=== PATIENT | male | born 1955 | race Caucasian/White ===

== ENCOUNTER 2018-12-29 12:40 | Emergency (ER) | payer MEDICARE ==
[~2018-12-29] VITALS: Ht 170.2 cm; Wt 88.5 kg
[~2018-12-29 12:40] MED LIST: ALUMAG30SU PO; ATOR10 PO; Aspirin EC81 MG PO; BUPR100ER PO; Bactrim Ds Tab1 EACH PO; CEPH500 PO; CLOP75 PO; GABA300 PO; Glipizide-Metf1 EAC2 PO; IBUP800 PO; LISI5 PO; Omeprazole20 M1 PO; PIOG15 PO; Pepcid20 MG PO; Percocet 7.5-31 EACH PO; Ultram50 MG PO
[2018-12-29] MEDS ORDERED: Robaxin500 MG PO (15:15)
== END 2018-12-29 15:23 | disposition home or self-care (01) ==
LOC: ER 12:40
DX: M54.5 Low back pain (principal); E78.5 Hyperlipidemia, unspecified; E11.9 Type 2 diabetes mellitus without complications; F17.210 Nicotine dependence, cigarettes, uncomplicated; Z88.8 Allergy status to other drugs, medicaments and biological substances; Z79.899 Other long term (current) drug therapy
CPT/HCPCS: 96372; 99283-25; J1885

== ENCOUNTER 2019-04-23 18:34 | Inpatient (IN) | payer MEDICARE ==
[~2019-04-23] VITALS: Ht 170.2 cm; Wt 85.3 kg
[~2019-04-23 18:34] MED LIST changes: +Robaxin500 MG PO
[2019-04-23 19:00] LABS: BASOPHILS ABSOLUTE AUTO 0.08 K/mm3 (0.00-0.23); BASOPHILS PERCENT AUTO 1 % (0-2); EOSINOPHILS PERCENT AUTO 2 % (0-6); Hematocrit 49.5 % (37.0-53.0); Hemoglobin 16.4 g/dL (13.5-17.5); IMMATURE GRAN ABSOLUTE AUTO 0.03 K/mm3 (0.00-0.10); IMMATURE GRAN PERCENT AUTO 0 % (0-1); LYMPHOCYTES ABSOLUTE AUTO 1.75 K/mm3 (0.84-5.20); LYMPHOCYTES PERCENT AUTO 20 % (21-46); MONOCYTES ABSOLUTE AUTO 0.67 K/mm3 (0.16-1.47); MONOCYTES PERCENT AUTO 8 % (4-13); Mean Corpuscular HGB 28.3 pg (26.0-34.0); Mean Corpuscular HGB Conc 33.1 g/dL (31.5-36.5); Mean Corpuscular Volume 85 fL (80-100); Mean Platelet Volume 9.9 fL (9.1-12.4); NEUTROPHILS ABSOLUTE AUTO 5.94 K/mm3 (1.96-9.15); NEUTROPHILS PERCENT AUTO 69 % (41-73); Platelet Count 249 K/mm3 (150-400); RDW Standard Deviation 43.3 fL (35.1-46.3); White Blood Cell Count 8.67 K/mm3 (4.00-11.30)
[2019-04-23 19:23] LABS: Alanine Aminotransfer (ALT/SGP 23 U/L (12-78); Albumin, Blood 3.6 g/dL (3.4-5.0); Albumin/Globulin Ratio 0.9 (0.8-1.8); Alk Phos 132 U/L (50-136); Anion Gap 7 mmol/L (6-16); Aspartate Aminotrans (AST/SGOT 19 U/L (12-37); Bilirubin, Total 0.7 mg/dL (0.1-1.0); Blood Urea Nitrogen 16 mg/dL (8-24); Bun/Creatinine Ratio 16.4 (12.0-20.0); CO2, Blood 23 mmol/L (21-32); Calcium, Blood 9.1 mg/dL (8.5-10.1); Chloride, Blood 101 mmol/L (98-108); Creatinine, Blood 0.97 mg/dL (0.60-1.20); Glomerular Filtration Rate >60 (60-); Glucose, Blood 504 mg/dL (70-99); Potassium, Blood 4.1 mmol/L (3.5-5.5); Sodium, Blood 131 mmol/L (136-145); Total Protein, Blood 7.6 g/dL (6.4-8.2)
[2019-04-23] MEDS ORDERED: Aspir 8181 MG PO (19:38)
[2019-04-23] MEDS ORDERED: Glipizide-Metf1 EAC2 PO (19:39)
[2019-04-23] MEDS ORDERED: NEURONTIN600 MG PO (19:39)
[2019-04-23] MEDS ORDERED: ATOR10 PO (19:40)
[2019-04-23] MEDS ORDERED: Prinivil10 MG PO (19:40)
--- NOTE | 2019-04-23 21:52 | NUR ---
ADMIT NOTE; ADMIT 64 YEAR OLD MALE TO ICU [address] GOMEZ SERVICE PER [facility] VIA ER. TRANSFER TO BED MONITOR PLACED SHOWING SINUS RHYTHM . HEART RATE 60'S DENIES CHEST PAIN/DISCOMFORT. LUNG SOUNDS CLEAR SLIGHTLY DECREASED R BASE. RESPIRATIONS REGULAR AND EASY ON ROOM AIR SPO2 96% ABDOMEN SOFT WITH BOWEL SOUNDS FOUR QUADS PEDAL PULSES PRESENT NO EDEMA NOTED. BLOOD CONSENT AND RELEASE OF MEDICAL INFROMATION COMPLETED. KNIGHT WELL IN BED. CONTINUE TO MONITOR AND REPORT CHANGE IN PATIENT CONDTION.
--- NOTE | 2019-04-23 23:00 | NUR ---
DR GOMEZ NOTIFIED OF PATIENT CO OF CHEST PAIN RADIATING TO SHOULDERS ORDERS NOTED. MEDICATED WITH 25MCGS OF FENTANYL
[2019-04-24 02:16] LABS: BASOPHILS ABSOLUTE AUTO 0.07 K/mm3 (0.00-0.23); BASOPHILS PERCENT AUTO 1 % (0-2); EOSINOPHILS ABSOLUTE AUTO 0.25 K/mm3 (0.00-0.68); EOSINOPHILS PERCENT AUTO 3 % (0-6); Hematocrit 47.9 % (37.0-53.0); Hemoglobin 15.6 g/dL (13.5-17.5); IMMATURE GRAN ABSOLUTE AUTO 0.04 K/mm3 (0.00-0.10); IMMATURE GRAN PERCENT AUTO 0 % (0-1); LYMPHOCYTES PERCENT AUTO 31 % (21-46); MONOCYTES ABSOLUTE AUTO 0.77 K/mm3 (0.16-1.47); MONOCYTES PERCENT AUTO 8 % (4-13); Mean Corpuscular HGB Conc 32.6 g/dL (31.5-36.5); Mean Corpuscular Volume 86 fL (80-100); Mean Platelet Volume 9.8 fL (9.1-12.4); NEUTROPHILS ABSOLUTE AUTO 5.21 K/mm3 (1.96-9.15); NEUTROPHILS PERCENT AUTO 56 % (41-73); Platelet Count 237 K/mm3 (150-400); RDW Coefficient Variation 13.9 % (11.7-14.2); RDW Standard Deviation 43.3 fL (35.1-46.3); Red Blood Cell Count 5.57 M/mm3 (4.30-5.90); White Blood Cell Count 9.24 K/mm3 (4.00-11.30)
[2019-04-24 02:38] LABS: Alanine Aminotransfer (ALT/SGP 21 U/L (12-78); Albumin, Blood 3.2 g/dL (3.4-5.0); Albumin/Globulin Ratio 0.9 (0.8-1.8); Alk Phos 103 U/L (50-136); Anion Gap 6 mmol/L (6-16); Aspartate Aminotrans (AST/SGOT 31 U/L (12-37); Bilirubin, Total 0.5 mg/dL (0.1-1.0); Blood Urea Nitrogen 14 mg/dL (8-24); Bun/Creatinine Ratio 16.3 (12.0-20.0); CO2, Blood 26 mmol/L (21-32); CPK Creatine Kinase 166 U/L (39-308); Calcium, Blood 8.6 mg/dL (8.5-10.1); Chloride, Blood 106 mmol/L (98-108); Creatine Kinase MB 8.5 ng/mL (0.0-3.6); Creatine Kinase MB Index 5.1 (0.0-4.0); Creatinine, Blood 0.86 mg/dL (0.60-1.20); Globulin, Blood 3.5 g/dL (2.2-4.0); Glomerular Filtration Rate >60 (60-); Glucose, Blood 291 mg/dL (70-99); Potassium, Blood 4.1 mmol/L (3.5-5.5); Sodium, Blood 138 mmol/L (136-145); Total Protein, Blood 6.7 g/dL (6.4-8.2)
--- NOTE | 2019-04-24 02:57 | NUR ---
DR HOLLOWAY NOTIFIED OF LAB RESULTS TROPONIN OF 5.28 ORDERS NOTED
--- NOTE | 2019-04-24 05:30 | NUR ---
SHFIT SUMMARY: RESTS QUIETLY WHEN UNDISTURBED. MONITOR INTACT SHOWING SINUS RHYTHM. HEART RATE 70'S-80'S. DENIES CHEST PAIN OR OTHER DISCOMFORT. LUNG SOUNDS CLEAR . RESPIRATIONS REGULAR AND EASY ON ROOM AIR SPOT CHECK SPO2 GREATER THAN 93% ABDOMEN SOFT WITH BOWEL SOUNDS FOUR QUADS. VOIDS LJ URINE. REPOSITIONS SELF IN BED PEDAL PULSES PRESENT NO EDEMA NOTED. SPENDING NOC AT BEDSIDE ATTENTIVE TO NEEDS AND CARES. CONTINUE TO MOONITOR AND REPORT CHANGE IN PATINET CONDITION. NPO SINCE MIDNOC
--- NOTE | 2019-04-24 07:29 | NUR ---
START OF SHIFT NOTE: RECEIVED REPORT FROM BRYAN ARAUJO RN, ASSUMED CARE, PATIENT IS AWAKE, ALERT AND ORIENTED, LUNG SOUNDS DIMINISHED AND EXPIRATORY WHEEZES NOTED IN LOWER LOBES, SR, PATIENT USES URINAL TO VOID, NO BM SINCE ARRIVAL, PATIENT DENIES PAIN OR SOB, REPORTES NO N/V, HEPARIN DRIP INFUSING AT 13 UNITS, NEXT PTT AT 0900, PATIENT IS NPO AT THIS TIME FOR POSSIBLE PROCEDURE, DR. EUGENE IN TO SEE PATIENT, AFEBRILE AT THIS TIME, AT BEDSIDE, CALL LIGHT IN REACH, WILL CONTINUE TO MONITOR.
--- NOTE | 2019-04-24 08:18 | NUR ---
STATE TESTED NURSING ASSISTANT IN TO DO ORDERED ECHO.
--- NOTE | 2019-04-24 08:18 | NUR ---
DR. LEE IN TO SEE PATIENT, NO NEW ORDERS RECEIVED.
[2019-04-24 09:53] LABS: CHOL/HDL RATIO 5.7; Cholesterol 217 mg/dL (50-200); HDL Cholesterol 38 mg/dL (>39); LDL/HDL RATIO 4.1; Low Density Lipoprotein Chol 154 mg/dL (0-110); Triglycerides 124 mg/dL (30-160); Very Low Density Lipoprot Chol 24 mg/dL (6-32)
[2019-04-24 09:57] LABS: Creatine Kinase MB Index 4.9 (0.0-4.0)
[2019-04-24 10:16] LABS: Troponin I 5.77 ng/mL (0.000-0.040)
--- NOTE | 2019-04-24 10:21 | NUR ---
PER PHARMACY HEPARIN DRIPP WAS INCREASED TO 15 UNITS AFTER PATIENT RECEIVED A BOLUS OF 4,250 UNITS OF HEPARIN, aPTT WAS 42.7, ALSO TROPONIN RESULTED IN 5.77 THAT WAS UP FROM 5.28 EARLIER, DR. EUGENE NOTIFIED, NEW ORDER RECEIVED.
--- NOTE | 2019-04-24 10:40 | NUR ---
PATIENT RESTING COMFORTABLY AT THIS TIME, DENIES PAIN, REPORTS NO SOB, COOPERATIVE AND PLEASANT, STANDS TO URINATE, CALL LIGHT IN REACH, WILL CONTINUE TO MONITOR.
--- NOTE | 2019-04-24 12:05 | NUR ---
Echocardiogram completed.
--- NOTE | 2019-04-24 13:35 | NUR ---
PATIENT TAKEN TO PEDIATRIC NEPHROLOGIST VIA HOSPITAL BED AND ON MONITOR.
[2019-04-24 13:46] LABS: Creatine Kinase MB Index 4.7 (0.0-4.0)
[2019-04-24 14:02] LABS: Troponin I 5.49 ng/mL (0.000-0.040)
--- NOTE | 2019-04-24 15:00 | NUR ---
PATIENT RETURNED FROM [employer], RIGHT RADIAL ACCESS SITE, TR BAND IN PLACE WITH 12 CC OF AIR, NO BLEEDING, NONTENDER, NO HEMATOMA NOTED, SOFT ON PALPATION, PATIENT HAS LOW SBP, IV BOLUS ORDERED, PATIENT IS AWAKE, ALERT AND ORIENTED, WILL BE TRANSFERRED TO [facility] FOR POSSIBLE CABG, AWAITING NOTIFICATION OF ACCEPTING PHYSICIAN, AT BEDSIDE, CALL LIGHT IN REACH, WILL CONTINUE TO MONITOR.
--- NOTE | 2019-04-24 16:36 | NUR ---
TRANSFER COORIDNATOR FROM [facility] CALLED AND NOTIFIED THIS RN THAT PATIENT HAS BEEN ACCEPTED, FACE SHEET WAS FAXED, DR. ZIEGLER IN TO NOTIFIY THIS RN WELL, WILL AWAIT CALL FOR ROOM NUMBER.
--- NOTE | 2019-04-24 17:21 | NUR ---
[facility] CALL AND RELAYED ROOM NUMBER, PATIENT IS GOING TO ROOM 4403, REPORT WILL BE CALLED TO FAISAL SWAIN, PATIENT EATING DINNER AT THIS TIME, JHONNY REYES, EXCEL EXPERT, WILL CALL [facility] TO INITIATE TRANSFER OF PATIENT.
--- NOTE | 2019-04-24 17:42 | NUR ---
SHIFT SUMMARY NOTE: NO ACUTE EVENTS, PATIENT IS EATING DINNER AND AWAITING TRANSFER TO [facility] IN [place], ALERT AND ORIENTED, RA, LUNG SOUNDS DIMINISHED BUT CLEAR, BOWEL TONES HYPOACTIVE, PATIENT USES URINAL TO VOID, HAS TR BAND ON RIGHT RADIAL ACCESS SITE FROM HEART CATHETERIZATION, 8 CC'S OF AIR REMAINING AT THIS TIME, PATIENT HAS ARMBOARD IN PLACE AND WAS INSTRUCTED TO NOT USE WRIST AND TREAT IT BROKEN, NO PUSHING, PULLING, FLEXINGIN EITHER DIRECTION, TRANSER PACKET READY, AWAITING [facility] TO ARRIVE FOR TRANSFER OF PATIENT, CALL LIGHT IN REACH, WILL CONTINUE TO MONITOR AND CALL REPORT TO FAISAL SWAIN, AT [facility].
--- NOTE | 2019-04-24 17:53 | NUR ---
REPORT CALLED TO FAISAL SWAIN, AT [facility] IN [place].
--- NOTE | 2019-04-24 18:00 | NUR ---
FAISAL SWAIN, AT [facility] REPORTED THAT DR. MARTÍNEZ APPRECIATES IF TRANSFER ARE ON HEPARIN DRIP, THIS WAS RELAYED TO DR. ZIEGLER, SHE STATED THAT "SHE WILL NOT RESTART HEPARIN UNTIL 4-6 HOURS AFTER TR BAND IS REMOVED, THIS WAS IN TURN RELAYED TO FAISAL SWAIN, AT [facility], WHO WILL SPEAK WITH DR. MARTÍNEZ AND GIVE HIM THE INFORMATION FROM DR. ZIEGLER.
== END 2019-04-24 18:20 | disposition short-term general hospital (02) | DRG 282 ==
LOC: ER 18:34 → ICUW 20:20 → ICUE 20:20
PROVIDERS: Internal Medicine Cardiovascular Disease; Physician Assistant; ADMIT Internal Medicine
PROC: B2111ZZ Fluoroscopy of Multiple Coronary Arteries using Low Osmolar Contrast (ICD-10-PCS; principal; 2019-04-24)
DX: I21.4 Non-ST elevation (NSTEMI) myocardial infarction (principal); Z98.52 Vasectomy status; I25.110 Atherosclerotic heart disease of native coronary artery with unstable angina pectoris; E87.5 Hyperkalemia; E11.51 Type 2 diabetes mellitus with diabetic peripheral angiopathy without gangrene; Z79.82 Long term (current) use of aspirin; E66.3 Overweight; Z79.84 Long term (current) use of oral hypoglycemic drugs; Z68.30 Body mass index [BMI] 30.0-30.9, adult; F17.210 Nicotine dependence, cigarettes, uncomplicated
CPT/HCPCS: 36415; 71046; 80053; 80061; 82550; 82553; 82947; 84484; 85025; 85347; 85730; 93005; 93010; 93306; 93454; 96374; 96375; 99152; 99153; 99285-25; C1769; C1894; J0461; J1170; J1644; J2250; J2405; J3010; J7030; J7040; Q9967

== ENCOUNTER → 2021-09-28 | Outpatient (CLI) | payer MEDICARE ==
[~2021-09-28] MED LIST changes: +ASPIR 8181 M1 PO; +Aspir 8181 MG PO; +ISOSORBIDE MONO30 MG PO; +METO50 PO; +NEURONTIN600 MG PO; +Prinivil10 MG PO
[2021-09-28 18:59] LABS: Creatinine, Urine Random 64.6 mg/dL (27.00-270.00); Microalb/Creat Ratio UR, Rand 9.319 mg/g (0.000-30.000); Microalbumin, Random Urine 6.02 mg/L (0.000-20.000)
== END | disposition home or self-care (01) ==
LOC: LAB 13:20 → LAB SHORT 13:20
PROVIDERS: Family Medicine
DX: E11.9 Type 2 diabetes mellitus without complications (principal)
CPT/HCPCS: 82043; 82570

== ENCOUNTER 2021-10-29 05:36 | Emergency (ER) | payer MEDICARE ==
[~2021-10-29] VITALS: Ht 170.2 cm; Wt 90.7 kg
[2021-10-29] MEDS ORDERED: Benadryl Itch28.3 G1 TOP (06:33)
[2021-10-29] MEDS ORDERED: CORTISONE60 GM TOP (06:33)
== END 2021-10-29 07:24 | disposition home or self-care (01) ==
LOC: ER 05:36
DX: L30.9 Dermatitis, unspecified (principal); I10 Essential (primary) hypertension; E11.9 Type 2 diabetes mellitus without complications; E78.5 Hyperlipidemia, unspecified; F17.210 Nicotine dependence, cigarettes, uncomplicated; Z88.8 Allergy status to other drugs, medicaments and biological substances; Z79.84 Long term (current) use of oral hypoglycemic drugs; Z79.82 Long term (current) use of aspirin; Z79.02 Long term (current) use of antithrombotics/antiplatelets
CPT/HCPCS: 99282

== ENCOUNTER → 2022-01-06 | Outpatient (CLI) | payer MEDICARE ==
[~2022-01-06] MED LIST changes: +Benadryl Itch28.3 G1 TOP; +CORTISONE60 GM TOP
== END | disposition home or self-care (01) ==
LOC: LAB SHORT 13:18 → PLD 13:18
DX: L97.819 Non-pressure chronic ulcer of other part of right lower leg with unspecified severity (principal)
CPT/HCPCS: 88305; 88312

== ENCOUNTER 2022-03-24 07:22 | Day surgery (SDC) | payer MEDICARE ==
[~2022-03-24] VITALS: Ht 170.2 cm; Wt 93.4 kg
[~2022-03-24 07:22] MED LIST changes: +GLIPIZIDE-METF1 EAC1 PO
--- NOTE | 2022-03-24 11:42 | NUR ---
Discharge instructions reviewed with patient. Patient verbalizes understanding. Copy given to patient to take home. Discharged via wheelchair to private car for ride home.
== END 2022-03-24 11:35 | disposition home or self-care (01) ==
LOC: ORSCMMR 07:22 → ORD 07:30 → ORSCMMR 09:00
PROVIDERS: Surgery
PROC: 0H88XZZ Division of Buttock Skin, External Approach (ICD-10-PCS; principal; 2022-03-24 09:00)
DX: K60.3 Anal fistula (principal); L98.9 Disorder of the skin and subcutaneous tissue, unspecified; N50.89 Other specified disorders of the male genital organs; I25.10 Atherosclerotic heart disease of native coronary artery without angina pectoris; E78.5 Hyperlipidemia, unspecified; I10 Essential (primary) hypertension; E11.9 Type 2 diabetes mellitus without complications; I73.9 Peripheral vascular disease, unspecified; Z79.02 Long term (current) use of antithrombotics/antiplatelets; Z79.82 Long term (current) use of aspirin; Z79.84 Long term (current) use of oral hypoglycemic drugs; Z79.899 Other long term (current) drug therapy
CPT/HCPCS: 82947; 88304; J0744; J2250; J2795; J7120

== ENCOUNTER 2022-06-16 09:44 | Day surgery (SDC) | payer MEDICARE, OTHER ==
[~2022-06-16] VITALS: Ht 170.2 cm; Wt 92.0 kg
--- NOTE | 2022-06-16 12:49 | NUR ---
Dressing to procedure site intact with no visible swelling, erythema or bruising noted. MINIMAL DRAINAGE NOTED ON GAUZE DRESSING
--- NOTE | 2022-06-16 13:20 | NUR ---
Discharge instructions reviewed with patient. Patient verbalizes understanding. Copy given to patient to take home. Discharged via wheelchair to private car for ride home.
== END 2022-06-16 13:21 | disposition home or self-care (01) ==
LOC: ORSCMMR 09:44
PROVIDERS: Surgery
PROC: 0DBQXZZ Excision of Anus, External Approach (ICD-10-PCS; principal; 2022-06-16 08:30)
DX: K60.3 Anal fistula (principal); I10 Essential (primary) hypertension; E11.9 Type 2 diabetes mellitus without complications; I25.10 Atherosclerotic heart disease of native coronary artery without angina pectoris; F17.210 Nicotine dependence, cigarettes, uncomplicated; Z79.02 Long term (current) use of antithrombotics/antiplatelets; Z79.899 Other long term (current) drug therapy; Z79.82 Long term (current) use of aspirin
CPT/HCPCS: 82947; J1100; J2250; J2405; J2704; J2795; J3010; J7120

== ENCOUNTER 2022-06-24 00:12 | Emergency (ER) | payer MEDICARE, OTHER ==
[~2022-06-24] VITALS: Ht 170.2 cm; Wt 90.7 kg
== END 2022-06-24 01:20 | disposition home or self-care (01) ==
LOC: ER 00:12
DX: Z48.01 Encounter for change or removal of surgical wound dressing (principal); L76.22 Postprocedural hemorrhage of skin and subcutaneous tissue following other procedure; E11.9 Type 2 diabetes mellitus without complications; F17.290 Nicotine dependence, other tobacco product, uncomplicated; Z79.82 Long term (current) use of aspirin; Z79.899 Other long term (current) drug therapy
CPT/HCPCS: 99283

== ENCOUNTER → 2022-10-27 | Outpatient (CLI) | payer MEDICARE, OTHER ==
[~2022-10-27] MED LIST changes: +ATORVASTATIN CA20 MG PO; +ONDA4ODT MM
[2022-10-27 20:24] LABS: Adenovirus F 40/41 Not Detected (NOT DETECT); Astrovirus Not Detected (NOT DETECT); Campylobacter Sp Not Detected (NOT DETECT); Cryptosporidium Not Detected (NOT DETECT); Cyclospora Cayetanensis Not Detected (NOT DETECT); E. Coli O157 Not Detected (NOT DETECT); Entamoeba Histolytica Not Detected (NOT DETECT); Enteroaggregative E. coli-EAEC Not Detected (NOT DETECT); Enteropathogenic E. coli-EPEC Not Detected (NOT DETECT); Enterotoxigenic E. coli-ETEC Not Detected (NOT DETECT); Giardia Lamblia Not Detected (NOT DETECT); Norovirus GI/GII Not Detected (NOT DETECT); Plesiomonas Shigelloides Not Detected (NOT DETECT); Rotavirus A Not Detected (NOT DETECT); Salmonella Sp Not Detected (NOT DETECT); Sapovirus Not Detected (NOT DETECT); Shiga Toxin-prod E. coli-STEC Not Detected (NOT DETECT); Shigella/Enteroin E. coli-EIEC Not Detected (NOT DETECT); Vibrio Cholerae Not Detected (NOT DETECT); Vibrio Sp Not Detected (NOT DETECT); Yersinia Enterocolitica Not Detected (NOT DETECT)
== END | disposition home or self-care (01) ==
LOC: LAB SHORT 08:00 → LAB 08:00
PROVIDERS: Nurse Practitioner Family
DX: R19.7 Diarrhea, unspecified (principal)
CPT/HCPCS: 87324; 87507

== ENCOUNTER 2024-12-11 01:11 | Day surgery (SDC) | payer MEDICARE, OTHER ==
[~2024-12-11 01:11] MED LIST changes: +Omalizumab 150 MG Syringe SC SCH
[2024-12-11 11:22] VITALS: BP 116/57
[2024-12-11] MEDS ORDERED: XOLAIR300 MG/2 M SC (11:32)
== END 2024-12-11 12:00 | disposition home or self-care (01) ==
LOC: ATC 01:11
DX: L50.3 Dermatographic urticaria (principal); L29.89 Other pruritus; I10 Essential (primary) hypertension; E11.9 Type 2 diabetes mellitus without complications; Z79.02 Long term (current) use of antithrombotics/antiplatelets; Z79.84 Long term (current) use of oral hypoglycemic drugs; Z79.899 Other long term (current) drug therapy
CPT/HCPCS: 96372; J2357

== ENCOUNTER 2025-01-08 01:21 | Day surgery (SDC) | payer MEDICARE, OTHER ==
[~2025-01-08 01:21] MED LIST changes: -Omalizumab 150 MG Syringe SC SCH; +XOLAIR300 MG/2 M SC
[2025-01-08] MEDS ORDERED: Omalizumab 150 MG Syringe SC SCH (07:05)
[2025-01-08 11:10] VITALS: BP 136/55
== END 2025-01-08 11:20 | disposition home or self-care (01) ==
LOC: ATC 01:21
DX: L50.3 Dermatographic urticaria (principal); L29.89 Other pruritus; I10 Essential (primary) hypertension; E11.9 Type 2 diabetes mellitus without complications; Z79.02 Long term (current) use of antithrombotics/antiplatelets; Z79.84 Long term (current) use of oral hypoglycemic drugs; Z79.899 Other long term (current) drug therapy
CPT/HCPCS: 96372; J2357

== ENCOUNTER 2025-02-07 00:17 | Day surgery (SDC) | payer MEDICARE, OTHER ==
[2025-02-07] MEDS ORDERED: Omalizumab 150 MG Syringe SC SCH (07:00)
[2025-02-07 11:20] VITALS: BP 146/60
== END 2025-02-07 11:22 | disposition home or self-care (01) ==
LOC: ATC 00:17
DX: L50.3 Dermatographic urticaria (principal); L29.89 Other pruritus; Z79.02 Long term (current) use of antithrombotics/antiplatelets; Z79.84 Long term (current) use of oral hypoglycemic drugs; Z79.899 Other long term (current) drug therapy
CPT/HCPCS: 96372; J2357

== ENCOUNTER 2025-03-06 00:48 | Day surgery (SDC) | payer MEDICARE, OTHER ==
[2025-03-06] MEDS ORDERED: Omalizumab 150 MG Syringe SC SCH (07:00)
[2025-03-06 08:30] VITALS: BP 131/66
[2025-03-07] MEDS ORDERED: Percocet 5-3251 EACH PO (16:26)
[2025-03-07] MEDS ORDERED: TAMS.4ER PO (16:26)
[2025-03-07] MEDS ORDERED: NITR100CA PO (16:26)
== END 2025-03-06 08:34 | disposition home or self-care (01) ==
LOC: ATC 00:48
DX: L50.3 Dermatographic urticaria (principal); E11.9 Type 2 diabetes mellitus without complications; Z79.84 Long term (current) use of oral hypoglycemic drugs
CPT/HCPCS: 96372; J2357

== ENCOUNTER 2025-03-07 14:02 | Emergency (ER) | payer MEDICARE, OTHER ==
[~2025-03-07] VITALS: Ht 170.2 cm; Wt 102.1 kg
[2025-03-07] MEDS ORDERED: NS 1,000 ML IV SCH (14:20)
[2025-03-07] MEDS ORDERED: Ketorolac Tromethamine 15mg Vial IV ONE (14:20)
[2025-03-07 15:16] LABS: BASOPHILS ABSOLUTE AUTO 0.04 K/mm3 (0.00-0.23); BASOPHILS PERCENT AUTO 0 % (0-2); EOSINOPHILS ABSOLUTE AUTO 0.10 K/mm3 (0.00-0.68); EOSINOPHILS PERCENT AUTO 1 % (0-6); Hematocrit 41.7 % (37.0-53.0); Hemoglobin 13.2 g/dL (13.5-17.5); IMMATURE GRAN ABSOLUTE AUTO 0.06 K/mm3 (0.00-0.10); IMMATURE GRAN PERCENT AUTO 1 % (0-1); LYMPHOCYTES ABSOLUTE AUTO 0.64 K/mm3 (0.84-5.20); LYMPHOCYTES PERCENT AUTO 7 % (21-46); MONOCYTES ABSOLUTE AUTO 0.41 K/mm3 (0.16-1.47); MONOCYTES PERCENT AUTO 5 % (4-13); Mean Corpuscular HGB Conc 31.7 g/dL (31.5-36.5); Mean Corpuscular Volume 90 fL (80-100); NEUTROPHILS ABSOLUTE AUTO 7.78 K/mm3 (1.96-9.15); NEUTROPHILS PERCENT AUTO 86 % (41-73); NRBC ABSOLUTE 0.00 K/mm3 (0.00-0.02); NRBC Auto 0.0 /100 WBC (0.0-0.2); Platelet Count 250 K/mm3 (150-400); RDW Coefficient Variation 15.8 % (11.7-14.2); RDW Standard Deviation 51.6 fL (35.1-46.3)
[2025-03-07 15:33] LABS: Prothrombin Time Results 11.8 Sec (9.7-11.5)
[2025-03-07 15:41] LABS: Alanine Aminotransfer (ALT/SGP 20.0 U/L (12-78); Albumin, Blood 3.5 g/dL (3.4-5.0); Albumin/Globulin Ratio 1.0 (0.8-1.8); Anion Gap 9.0 mmol/L (3-11); Aspartate Aminotrans (AST/SGOT 17.0 U/L (12-37); Bilirubin, Total 0.4 mg/dL (0.1-1.0); Blood Urea Nitrogen 23.0 mg/dL (8-24); CO2, Blood 24.0 mmol/L (21-32); Calcium, Blood 8.7 mg/dL (8.5-10.1); Chloride, Blood 107.0 mmol/L (98-108); Creatinine, Blood 1.4 mg/dL (0.60-1.20); Globulin, Blood 3.6 g/dL (2.2-4.0); Glucose, Blood 184.0 mg/dL (70-99); Potassium, Blood 5.1 mmol/L (3.5-5.5); Sodium, Blood 135.0 mmol/L (136-145); Total Protein, Blood 7.1 g/dL (6.4-8.2)
[2025-03-07 15:50] LABS: Source, Urine Clean Catch
[2025-03-07 16:02] LABS: Bilirubin, Urine Neg (Neg); Color, Urine Brown (P-Yellow); Glucose Qualitative, Urine 2+ (Neg); Ketones, Urine 1+ (Neg); Leukocyte Esterase, Urine 1+ (Neg); Protein, Urine 3+ (Neg); Specific Gravity, Urine 1.025 (1.003-1.022); Urobilinogen, Urine 1+ (Normal)
[2025-03-07 16:08] LABS: Red Blood Cells, Urine TNTC /hpf (0-2)
[2025-03-07] MEDS ORDERED: Percocet 5-3251 EACH PO (16:26)
[2025-03-07] MEDS ORDERED: TAMS.4ER PO (16:26)
[2025-03-07] MEDS ORDERED: NITR100CA PO (16:26)
[2025-03-07 17:34] VITALS: BP 169/69
== END 2025-03-07 17:35 | disposition home or self-care (01) ==
LOC: ER 14:02
PROVIDERS: Emergency Medicine
DX: N13.6 Pyonephrosis (principal); I10 Essential (primary) hypertension; E11.9 Type 2 diabetes mellitus without complications; E78.5 Hyperlipidemia, unspecified; F17.200 Nicotine dependence, unspecified, uncomplicated; Z79.2 Long term (current) use of antibiotics; Z79.899 Other long term (current) drug therapy; Z79.82 Long term (current) use of aspirin
CPT/HCPCS: 74176; 80053; 81001; 85025; 85610; 87086; 96374; 99285-25; J1885

== ENCOUNTER 2025-04-02 00:25 | Day surgery (SDC) | payer MEDICARE, OTHER ==
[~2025-04-02 00:25] MED LIST changes: +NITR100CA PO; +Percocet 5-3251 EACH PO; +TAMS.4ER PO
[2025-04-02] MEDS ORDERED: Omalizumab 150 MG Syringe SC SCH (06:00)
== END 2025-04-02 12:12 | disposition home or self-care (01) ==
LOC: ATC 00:25
DX: L50.3 Dermatographic urticaria (principal); Z79.84 Long term (current) use of oral hypoglycemic drugs
CPT/HCPCS: 96372; J2357

== ENCOUNTER 2025-04-30 02:47 | Day surgery (SDC) | payer MEDICARE, OTHER ==
[2025-04-30] MEDS ORDERED: Omalizumab 150 MG Syringe SC SCH (10:00)
[2025-04-30 11:31] VITALS: BP 143/67
== END 2025-04-30 11:39 | disposition home or self-care (01) ==
LOC: ATC 02:47
DX: L50.3 Dermatographic urticaria (principal); E11.9 Type 2 diabetes mellitus without complications; Z79.84 Long term (current) use of oral hypoglycemic drugs
CPT/HCPCS: 96372; J2357